=== PATIENT | female | born 1940 | race Caucasian/White ===

== ENCOUNTER 2024-02-21 12:55 | Inpatient (IN) | payer BC, OTHER ==
[2024-02-21] VITALS (10 sets, daily range): BP systolic 98–131; BP diastolic 56–103; TEMP 98.2–98.7; O2SAT 94–98
[~2024-02-21] VITALS: Ht 165.1 cm; Wt 69.9 kg
[2024-02-21] MEDS: AMIODARONE HCL IV 150 MG in IV DEXTROSE 5% 100 ML IV ONE (13:15)
[2024-02-21] MEDS: DIGOXIN 500 MCG/2 ML AMP IV ONE (13:15)
[2024-02-21] MEDS ORDERED: CHOL2000 PO (13:24)
[2024-02-21] MEDS ORDERED: MEMA10TA PO (13:24)
[2024-02-21] MEDS ORDERED: BISA10SU61 RC (13:24)
[2024-02-21] MEDS ORDERED: MECL-159 PO (13:24)
[2024-02-21] MEDS ORDERED: PRO-STAT (13:24)
[2024-02-21] MEDS ORDERED: LEVO150T8 PO (13:24)
[2024-02-21] MEDS ORDERED: ASCO500C18 PO (13:24)
[2024-02-21] MEDS ORDERED: GUAI5SYR PO (13:24)
[2024-02-21] MEDS ORDERED: MULT-213 PO (13:24)
[2024-02-21] MEDS ORDERED: MAGN400O6 PO (13:24)
[2024-02-21] MEDS ORDERED: AMIN30LI2 PO (13:24)
[2024-02-21] MEDS ORDERED: IPRA3AMP22 IH (13:24)
[2024-02-21] MEDS ORDERED: ATOR80TA PO (13:24)
[2024-02-21] MEDS ORDERED: NA P133E RC (13:24)
[2024-02-21 13:27] LABS: BASOPHILS % (AUTO) 0.1 % (0.0-2.0); EOSINOPHILS % (AUTO) 0.1 % (0.0-7.0); HEMATOCRIT 37.4 % (31.2-41.9); HEMOGLOBIN 12.5 g/dL (10.9-14.3); LYMPHOCYTES # (AUTO) 0.8 K/uL (0.8-4.8); LYMPHOCYTES % (AUTO) 4.7 % (20.5-51.5); MEAN CORPUSCULAR HEMOGLOBIN 32.2 uug (24.7-32.8); MEAN CORPUSCULAR HGB CONC 33 g/dL (32.3-35.6); MEAN CORPUSCULAR VOLUME 96.3 fL (75.5-95.3); MONOCYTES % (AUTO) 5.6 % (0.0-11.0); NEUTROPHILS # (AUTO) 15.4 K/uL (1.8-8.9); NEUTROPHILS % (AUTO) 89.5 % (38.5-71.5); PLATELET COUNT (AUTO) 306 K/uL (179-408); RED BLOOD CELL COUNT(AUTO) 3.88 MIL/uL (3.63-4.92); RED CELL DISTRIBUTION WIDTH 15.5 % (12.3-17.7); WHITE BLOOD COUNT (AUTO) 17.3 K/uL (3.8-11.8)
[2024-02-21 13:35] LABS: DIFFERENTIAL COMMENT 1
[2024-02-21 13:42] LABS: CALCIUM 8.9 mg/dL (8.5-10.1); CARBON DIOXIDE 22 mmol/L (21-32); CHLORIDE 108 mmol/L (98-107); CREATININE 3.7 mg/dL (0.6-1.3); GLUCOSE 126 mg/dL (74-106); POTASSIUM 5.2 mmol/L (3.5-5.1); SODIUM SERUM 148 mmol/L (136-145); UREA NITROGEN, BLOOD 79 mg/dL (7-18)
[2024-02-21 13:52] LABS: LACTIC ACID 3.9 mmol/L (0.4-2.0)
[2024-02-21 13:55] LABS: ALANINE AMINOTRANSFERASE 38 U/L (14-59); ALBUMIN 2.2 g/dL (3.4-5.0); ALKALINE PHOSPHATASE 125 U/L (50-136); ASPARTATE AMINOTRANSFERASE 105 U/L (15-37); BILIRUBIN,DIRECT 1.5 mg/dL (0.0-0.2); BILIRUBIN,TOTAL 2.2 mg/dL (0.2-1.0); NT-PRO BNP 49000 pg/mL (0-125); TOTAL PROTEIN, SERUM 7.5 g/dL (6.4-8.2)
[2024-02-21] MEDS: levoFLOXacin 500 MG/D5W 100ML PIGGYBACK IV ONE (14:00)
[2024-02-21] MEDS: IV NORMAL SALINE 1000 ML BAG IV ONE ×2 (14:00→15:45)
[2024-02-21 14:18] LABS: ABG BASE EXCESS -6.9 mmol/L (-2.0-3.0); ABG HCO3 18.7 mmol/L (21.0-28.0); ABG PO2 60.1 mmHg (83.0-108.0); ABG SITE LEFT RADIAL; ABG TOTAL HEMOGLOBIN 13.8 G/dL (12.0-16.0); COHb 0.1 % (0.5-1.5); MetHb 0.3 % (0.0-1.5); O2Hb 86.8 % (94.0-98.0)
[2024-02-21] MEDS ORDERED: REMEDY ESSENTIAL ZINC PASTE 113 GM TP PRN (16:15)
[2024-02-21] MEDS ORDERED: DILTIAZEM HCL IV 125 MG in IV NORMAL SALINE 100 ML IV PRN (16:15)
[2024-02-21] MEDS ORDERED: MAGNESIUM HYDROXIDE 30 ML LIQUID UDC PO PRN ×2 (16:15→19:00)
[2024-02-21] MEDS ORDERED: ONDANSETRON 4 MG/2 ML VIAL IV PRN (16:15)
[2024-02-21] MEDS ORDERED: ACETAMINOPHEN 325 MG TABLET PO PRN (16:15)
[2024-02-21] MEDS ORDERED: DIGOXIN 500 MCG/2 ML AMP ONE (16:55)
[2024-02-21] MEDS ORDERED: PROPOFOL 100 ML ONE (16:56)
[2024-02-21 17:03] LABS: ABG BASE EXCESS -8.8 mmol/L (-2.0-3.0); ABG HCO3 15.4 mmol/L (21.0-28.0); ABG PCO2 28.4 mmHg (32.0-45.0); ABG PH 7.351 (7.350-7.450); ABG PO2 378.6 mmHg (83.0-108.0); ABG SITE LEFT RADIAL; AaDO2 99.8 mmHg; COHb 0.3 % (0.5-1.5); MetHb 0.5 % (0.0-1.5); VT, ABG 450 mL
[2024-02-21] MEDS: levoFLOXacin 750 MG/D5W 150 ML PIGGYBACK IV ONE (17:09)
[2024-02-21] MEDS ORDERED: levoFLOXacin 500 MG/D5W 100 ML ONE (17:31)
[2024-02-21] MEDS: PROPOFOL 100 ML IV PRN (17:33)
[2024-02-21] MEDS: DILTIAZEM HCL IV 125 MG in IV NORMAL SALINE 100 ML IV PRN (18:50)
[2024-02-21] MEDS ORDERED: FLEET ENEMA 133 ML BOTTLE RC PRN (19:00)
[2024-02-21] MEDS ORDERED: BISACODYL 10 MG SUPP.RECT RC PRN (19:00)
[2024-02-21] MEDS: HEPARIN SODIUM,PORCINE 5,000 UNITS/ML VIAL IV PRN (19:26)
[2024-02-21] MEDS: HEPARIN/D5W DRIP 500 ML IV PRN (19:43)
[2024-02-21] MEDS: IV D5 1/2 NS 1000 ML 1,000 ML IV PRN (19:48)
[2024-02-22] VITALS (37 sets, daily range): BP systolic 88–127; BP diastolic 37–75; TEMP 97.8–98.6; O2SAT 91–99
[2024-02-22] MEDS ORDERED: DILTIAZEM HCL 25 MG IV ONE (04:45)
[2024-02-22 05:23] LABS: EOSINOPHILS % (AUTO) 0.1 % (0.0-7.0); HEMATOCRIT 33.9 % (31.2-41.9); HEMOGLOBIN 11.7 g/dL (10.9-14.3); LYMPHOCYTES # (AUTO) 0.6 K/uL (0.8-4.8); LYMPHOCYTES % (AUTO) 3.2 % (20.5-51.5); MEAN CORPUSCULAR HGB CONC 35 g/dL (32.3-35.6); MEAN CORPUSCULAR VOLUME 95.9 fL (75.5-95.3); MONOCYTES # (AUTO) 0.4 K/uL (0.1-1.30); MONOCYTES % (AUTO) 2.6 % (0.0-11.0); NEUTROPHILS # (AUTO) 16.2 K/uL (1.8-8.9); NEUTROPHILS % (AUTO) 94.1 % (38.5-71.5); PLATELET COUNT (AUTO) 225 K/uL (179-408); RED BLOOD CELL COUNT(AUTO) 3.53 MIL/uL (3.63-4.92); WHITE BLOOD COUNT (AUTO) 17.2 K/uL (3.8-11.8)
[2024-02-22 05:38] LABS: CARBON DIOXIDE 22 mmol/L (21-32); CHLORIDE 108 mmol/L (98-107); CREATININE 3.7 mg/dL (0.6-1.3); GLUCOSE 144 mg/dL (74-106); MAGNESIUM 2.2 mg/dL (1.8-2.4); PHOSPHOROUS 3.2 mg/dL (2.5-4.9); POTASSIUM 4.5 mmol/L (3.5-5.1); SODIUM SERUM 144 mmol/L (136-145)
[2024-02-22 05:45] LABS: THYROID STIMULATING HORMONE 7.946 mIU/mL (0.358-3.740)
[2024-02-22 05:57] LABS: UREA NITROGEN, BLOOD 86 mg/dL (7-18)
[2024-02-22 06:26] LABS: DIFFERENTIAL COMMENT 1
[2024-02-22] MEDS ORDERED: Medication Not On Formulary EA (Amino Acids/Protein Hydrolys (Pro-Stat Liquid) 30 ML) PO SCH (09:00)
[2024-02-22] MEDS ORDERED: MEROPENEM 500 MG in IV NORMAL SALINE 50 ML IV SCH (09:00)
[2024-02-22] MEDS ORDERED: MEMANTINE HCL 10 MG TABLET PO SCH (09:00)
[2024-02-22] MEDS: PANTOPRAZOLE SODIUM 40 MG VIAL IV SCH (09:39)
[2024-02-22] MEDS: CHOLECALCIFEROL 1,000 UNIT TABLET PO SCH (09:40)
[2024-02-22] MEDS: MEMANTINE HCL 5 MG TABLET PO SCH (09:40)
[2024-02-22] MEDS: MULTIVITAMINS,THERAPEUTIC TABLET PO SCH (09:41)
[2024-02-22] MEDS: ASCORBIC ACID 500 MG TABLET PO SCH (09:41)
[2024-02-22] MEDS: ATORVASTATIN 40 MG TABLET PO SCH (09:41)
[2024-02-22] MEDS: PROTEIN SUPPLEMENT (PROSTAT) 30 ML LIQUID PO SCH (09:45)
[2024-02-22] MEDS: HEPARIN SODIUM,PORCINE 5,000 UNITS/ML VIAL IV ONE (11:49)
[2024-02-22] MEDS: MEROPENEM 500 MG in IV NORMAL SALINE 50 ML IV SCH (11:59)
[2024-02-22] MEDS ORDERED: LEVOFLOXACIN 250 MG IV SCH (21:00)
[2024-02-22] MEDS ORDERED: [UNRECOGNIZED DRUG - OTHER] IV SCH (21:00)
[2024-02-23] VITALS (60 sets, daily range): BP systolic 89–131; BP diastolic 42–76; TEMP 96.6–98.2; O2SAT 92–100
[2024-02-23 05:22] LABS: BASOPHILS % (AUTO) 0.1 % (0.0-2.0); EOSINOPHILS % (AUTO) 0.1 % (0.0-7.0); HEMATOCRIT 32.8 % (31.2-41.9); HEMOGLOBIN 11.2 g/dL (10.9-14.3); LYMPHOCYTES # (AUTO) 1.1 K/uL (0.8-4.8); LYMPHOCYTES % (AUTO) 4.5 % (20.5-51.5); MEAN CORPUSCULAR HEMOGLOBIN 32.6 uug (24.7-32.8); MEAN CORPUSCULAR HGB CONC 34 g/dL (32.3-35.6); MEAN CORPUSCULAR VOLUME 95.7 fL (75.5-95.3); MONOCYTES # (AUTO) 0.7 K/uL (0.1-1.30); MONOCYTES % (AUTO) 3.1 % (0.0-11.0); NEUTROPHILS # (AUTO) 21.9 K/uL (1.8-8.9); NEUTROPHILS % (AUTO) 92.2 % (38.5-71.5); PLATELET COUNT (AUTO) 227 K/uL (179-408); RED BLOOD CELL COUNT(AUTO) 3.43 MIL/uL (3.63-4.92); RED CELL DISTRIBUTION WIDTH 14.6 % (12.3-17.7); WHITE BLOOD COUNT (AUTO) 23.8 K/uL (3.8-11.8)
[2024-02-23 05:57] LABS: ABG BASE EXCESS -5.7 mmol/L (-2.0-3.0); ABG HCO3 18.5 mmol/L (21.0-28.0); ABG PCO2 31.8 mmHg (32.0-45.0); ABG PH 7.382 (7.350-7.450); ABG PO2 108.4 mmHg (83.0-108.0); ABG SITE LEFT FEMORAL; ABG TOTAL HEMOGLOBIN 11.7 G/dL (12.0-16.0); AaDO2 97.9 mmHg; COHb 0.3 % (0.5-1.5); MetHb 0.4 % (0.0-1.5); O2Hb 97.1 % (94.0-98.0); VT, ABG 450 mL
[2024-02-23 06:11] LABS: DIFFERENTIAL COMMENT 1
[2024-02-23 07:22] LABS: ALANINE AMINOTRANSFERASE 74 U/L (14-59); ALBUMIN 1.5 g/dL (3.4-5.0); ALKALINE PHOSPHATASE 154 U/L (50-136); ASPARTATE AMINOTRANSFERASE 195 U/L (15-37); BILIRUBIN,DIRECT 2.2 mg/dL (0.0-0.2); BILIRUBIN,TOTAL 2.9 mg/dL (0.2-1.0); CALCIUM 7.9 mg/dL (8.5-10.1); CARBON DIOXIDE 19 mmol/L (21-32); CHLORIDE 108 mmol/L (98-107); CREATINE KINASE, TOTAL 683 U/L (26-192); CREATININE 3.8 mg/dL (0.6-1.3); GLUCOSE 141 mg/dL (74-106); MAGNESIUM 2.4 mg/dL (1.8-2.4); NT-PRO BNP 22538 pg/mL (0-125); PHOSPHOROUS 3.2 mg/dL (2.5-4.9); POTASSIUM 4.5 mmol/L (3.5-5.1); SODIUM SERUM 144 mmol/L (136-145)
[2024-02-23 07:35] LABS: UREA NITROGEN, BLOOD 91 mg/dL (7-18)
[2024-02-23] MEDS: LEVOTHYROXINE SODIUM 150 MCG TABLET NG SCH (10:33)
[2024-02-23 10:40] LABS: *BILIRUBIN,URIN NEGATIVE (NEGATIVE); *BLOOD, URINE 2+ (NEGATIVE); *CLARITY,URINE CLEAR (CLEAR); *COLOR,URINE YELLOW (YELLOW); *KETONES,URINE NEGATIVE (NEGATIVE); *PROTEIN,URINE 2+ (NEGATIVE); LEUKOCYTE ESTERASE ,URINE 1+ (NEGATIVE); NITRITE, URINE NEGATIVE (NEGATIVE); UGLUCOSE NEGATIVE (NEGATIVE)
[2024-02-23 10:48] LABS: RBC,URINE 20-50 /HPF (0-3)
[2024-02-23 10:49] LABS: BACTERIA,URINE FEW /HPF (NONE SEEN); SQUAMOUS EPITHELIAL CELL,UR FEW /HPF (NONE SEEN)
[2024-02-23 12:26] LABS: *CREATININE,URINE 64.8 mg/dL (30-125)
[2024-02-23] MEDS ORDERED: LEVOFLOXACIN 250 MG IV SCH ×2 (14:00→21:00)
[2024-02-23] MEDS ORDERED: [UNRECOGNIZED DRUG - OTHER] IV SCH ×2 (14:00→21:00)
[2024-02-23] MEDS: DOXYCYCLINE HYCLATE IV 100 MG in IV DEXTROSE 5% 100 ML IV SCH (16:55)
[2024-02-23] MEDS: HEPARIN SODIUM,PORCINE 5,000 UNITS/ML VIAL SQ SCH (21:03)
[2024-02-24] VITALS (45 sets, daily range): BP systolic 87–140; BP diastolic 38–69; TEMP 97.3–98.2; O2SAT 97–100
[2024-02-24] MEDS: DOXYCYCLINE HYCLATE IV 100 MG in IV DEXTROSE 5% 100 ML IV SCH ×2 (04:33→09:22)
[2024-02-24 05:07] LABS: PTH, INTACT 160 pg/mL (15-65)
[2024-02-24 05:19] LABS: BASOPHILS % (AUTO) 0.1 % (0.0-2.0); HEMATOCRIT 34.6 % (31.2-41.9); RED BLOOD CELL COUNT(AUTO) 3.58 MIL/uL (3.63-4.92)
[2024-02-24 05:23] LABS: EOSINOPHILS % (AUTO) 0.1 % (0.0-7.0); HEMOGLOBIN 11.4 g/dL (10.9-14.3); LYMPHOCYTES # (AUTO) 1.2 K/uL (0.8-4.8); LYMPHOCYTES % (AUTO) 3.7 % (20.5-51.5); MEAN CORPUSCULAR HEMOGLOBIN 31.9 uug (24.7-32.8); MEAN CORPUSCULAR HGB CONC 33 g/dL (32.3-35.6); MEAN CORPUSCULAR VOLUME 96.6 fL (75.5-95.3); MONOCYTES # (AUTO) 0.7 K/uL (0.1-1.30); MONOCYTES % (AUTO) 2.2 % (0.0-11.0); NEUTROPHILS # (AUTO) 29.7 K/uL (1.8-8.9); NEUTROPHILS % (AUTO) 93.9 % (38.5-71.5); PLATELET COUNT (AUTO) 260 K/uL (179-408); RED CELL DISTRIBUTION WIDTH 15.6 % (12.3-17.7)
[2024-02-24 05:31] LABS: DIFFERENTIAL COMMENT 1; WHITE BLOOD COUNT (AUTO) 31.6 K/uL (3.8-11.8)
[2024-02-24 05:34] LABS: CALCIUM 7.7 mg/dL (8.5-10.1); CARBON DIOXIDE 21 mmol/L (21-32); CHLORIDE 105 mmol/L (98-107); CREATININE 3.5 mg/dL (0.6-1.3); GLUCOSE 149 mg/dL (74-106); MAGNESIUM 2.3 mg/dL (1.8-2.4); PHOSPHOROUS 4.2 mg/dL (2.5-4.9); POTASSIUM 4.2 mmol/L (3.5-5.1); SODIUM SERUM 138 mmol/L (136-145)
[2024-02-24 05:48] LABS: UREA NITROGEN, BLOOD 87 mg/dL (7-18)
[2024-02-24 07:44] LABS: ABG BASE EXCESS -5.6 mmol/L (-2.0-3.0); ABG HCO3 18.7 mmol/L (21.0-28.0); ABG PCO2 32.5 mmHg (32.0-45.0); ABG PH 7.377 (7.350-7.450); ABG PO2 129.3 mmHg (83.0-108.0); ABG TOTAL HEMOGLOBIN 11.8 G/dL (12.0-16.0); AaDO2 98.6 mmHg; COHb 0.3 % (0.5-1.5); CPAP,BG 8 cmH20; MetHb 0.4 % (0.0-1.5); O2Hb 97.9 % (94.0-98.0)
[2024-02-24] MEDS: FUROSEMIDE 20 MG/2 ML VIAL IV SCH (09:22)
[2024-02-24 15:58] LABS: BAND % (MANUAL) 3 % (0-10); LYMPHOCYTES % (MANUAL) 2 % (20-40); NEUTROPHILS % (MANUAL) 88 % (42-75)
[2024-02-24 15:59] LABS: ANISOCYTOSIS 1+; METAMYELOCYTES % 6 % (0-1); MYELOCYTES % 1 % (0-0); PLATELET ESTIMATE ADEQUATE
[2024-02-24] MEDS: FUROSEMIDE 40 MG/4 ML VIAL IV ONE (16:24)
[2024-02-25] VITALS (43 sets, daily range): BP systolic 73–148; BP diastolic 37–106; TEMP 96.7–98.4; O2SAT 92–100
[2024-02-25 05:46] LABS: ABG BASE EXCESS -5.9 mmol/L (-2.0-3.0); ABG HCO3 18.4 mmol/L (21.0-28.0); ABG PCO2 32.4 mmHg (32.0-45.0); ABG PH 7.373 (7.350-7.450); ABG PO2 102.7 mmHg (83.0-108.0); ABG SITE LEFT RADIAL; ABG TOTAL HEMOGLOBIN 11.5 G/dL (12.0-16.0); AaDO2 97.6 mmHg; COHb 0.1 % (0.5-1.5); CPAP,BG 8 cmH20; MetHb 0.3 % (0.0-1.5); O2Hb 97.5 % (94.0-98.0)
[2024-02-25] MEDS: LEVALBUTEROL HCL NEB 0.63 MG/3 ML NEBU NEB SCH (13:03)
[2024-02-25 14:55] LABS: BASOPHILS % (AUTO) 0.1 % (0.0-2.0); EOSINOPHILS # (AUTO) 0.1 K/uL (0.0-0.7); EOSINOPHILS % (AUTO) 0.2 % (0.0-7.0); HEMATOCRIT 32.2 % (31.2-41.9); HEMOGLOBIN 10.7 g/dL (10.9-14.3); LYMPHOCYTES # (AUTO) 1.4 K/uL (0.8-4.8); LYMPHOCYTES % (AUTO) 2.9 % (20.5-51.5); MEAN CORPUSCULAR HEMOGLOBIN 31.6 uug (24.7-32.8); MEAN CORPUSCULAR HGB CONC 33 g/dL (32.3-35.6); MEAN CORPUSCULAR VOLUME 95.1 fL (75.5-95.3); MONOCYTES # (AUTO) 0.8 K/uL (0.1-1.30); MONOCYTES % (AUTO) 1.7 % (0.0-11.0); NEUTROPHILS # (AUTO) 44.5 K/uL (1.8-8.9); NEUTROPHILS % (AUTO) 95.1 % (38.5-71.5); PLATELET COUNT (AUTO) 288 K/uL (179-408); RED BLOOD CELL COUNT(AUTO) 3.38 MIL/uL (3.63-4.92); RED CELL DISTRIBUTION WIDTH 15.4 % (12.3-17.7)
[2024-02-25 15:04] LABS: DIFFERENTIAL COMMENT 1; WHITE BLOOD COUNT (AUTO) 46.8 K/uL (3.8-11.8)
[2024-02-25 15:19] LABS: ALANINE AMINOTRANSFERASE 50 U/L (14-59); ALKALINE PHOSPHATASE 226 U/L (50-136); ASPARTATE AMINOTRANSFERASE 138 U/L (15-37); BILIRUBIN,TOTAL 1.8 mg/dL (0.2-1.0); CALCIUM 7.6 mg/dL (8.5-10.1); CARBON DIOXIDE 21 mmol/L (21-32); CHLORIDE 105 mmol/L (98-107); CREATININE 3.8 mg/dL (0.6-1.3); GLUCOSE 95 mg/dL (74-106); MAGNESIUM 2.2 mg/dL (1.8-2.4); PHOSPHOROUS 5.3 mg/dL (2.5-4.9); POTASSIUM 4.6 mmol/L (3.5-5.1); SODIUM SERUM 141 mmol/L (136-145); TOTAL PROTEIN, SERUM 6.2 g/dL (6.4-8.2)
[2024-02-25 15:27] LABS: ALBUMIN 1.4 g/dL (3.4-5.0); UREA NITROGEN, BLOOD 99 mg/dL (7-18)
[2024-02-25] MEDS: IV D5W 1000ML 1,000 ML IV PRN (16:25)
[2024-02-25] MEDS: JEVITY 1.2 1000 ML LIQUID GT PRN (16:26)
[2024-02-25] MEDS: NOREPINEPHRINE 8MG/NS 250ML 250 ML IV PRN (19:27)
[2024-02-25 20:40] LABS: BAND % (MANUAL) 1 % (0-10); LYMPHOCYTES % (MANUAL) 1 % (20-40); METAMYELOCYTES % 3 % (0-1); MONOCYTES % (MANUAL) 1 % (2-10); MYELOCYTES % 1 % (0-0); NEUTROPHILS % (MANUAL) 93 % (42-75)
[2024-02-25 20:41] LABS: ANISOCYTOSIS 1+; PLATELET ESTIMATE ADEQUATE
[2024-02-25] MEDS: METRONIDAZOLE 500 MG TABLET PO SCH (22:11)
[2024-02-26] VITALS (53 sets, daily range): BP systolic 79–164; BP diastolic 37–92; TEMP 97.6–98.7; O2SAT 90–98
[2024-02-26 11:10] LABS: DIFFERENTIAL COMMENT 0; EOSINOPHILS # (AUTO) 0.1 K/uL (0.0-0.7); EOSINOPHILS % (AUTO) 0.1 % (0.0-7.0); HEMATOCRIT 30.8 % (31.2-41.9); HEMOGLOBIN 10.1 g/dL (10.9-14.3); LYMPHOCYTES % (AUTO) 1.8 % (20.5-51.5); MEAN CORPUSCULAR HEMOGLOBIN 31.5 uug (24.7-32.8); MEAN CORPUSCULAR HGB CONC 33 g/dL (32.3-35.6); MEAN CORPUSCULAR VOLUME 95.9 fL (75.5-95.3); MONOCYTES # (AUTO) 0.4 K/uL (0.1-1.30); MONOCYTES % (AUTO) 0.7 % (0.0-11.0); NEUTROPHILS # (AUTO) 55.8 K/uL (1.8-8.9); NEUTROPHILS % (AUTO) 97.4 % (38.5-71.5); PLATELET COUNT (AUTO) 295 K/uL (179-408); RED BLOOD CELL COUNT(AUTO) 3.21 MIL/uL (3.63-4.92); RED CELL DISTRIBUTION WIDTH 15.6 % (12.3-17.7)
[2024-02-26 11:13] LABS: WHITE BLOOD COUNT (AUTO) 57.4 K/uL (3.8-11.8)
[2024-02-26 11:28] LABS: ALANINE AMINOTRANSFERASE 41 U/L (14-59); ALKALINE PHOSPHATASE 253 U/L (50-136); ASPARTATE AMINOTRANSFERASE 133 U/L (15-37); BILIRUBIN,DIRECT 1.3 mg/dL (0.0-0.2); BILIRUBIN,TOTAL 1.6 mg/dL (0.2-1.0); CARBON DIOXIDE 18 mmol/L (21-32); CHLORIDE 101 mmol/L (98-107); CREATININE 4.2 mg/dL (0.6-1.3); GLUCOSE 109 mg/dL (74-106); MAGNESIUM 2.3 mg/dL (1.8-2.4); PHOSPHOROUS 6.8 mg/dL (2.5-4.9); SODIUM SERUM 135 mmol/L (136-145); TOTAL PROTEIN, SERUM 6.1 g/dL (6.4-8.2)
[2024-02-26 11:32] LABS: UREA NITROGEN, BLOOD 101 mg/dL (7-18)
[2024-02-26 11:33] LABS: ALBUMIN 1.2 g/dL (3.4-5.0)
[2024-02-26 12:00] LABS: BAND % (MANUAL) 2 % (0-10); LYMPHOCYTES % (MANUAL) 1 % (20-40); MONOCYTES % (MANUAL) 4 % (2-10); NEUTROPHILS % (MANUAL) 92 % (42-75)
[2024-02-26 12:01] LABS: ANISOCYTOSIS 1+; METAMYELOCYTES % 1 % (0-1); PLATELET ESTIMATE ADEQUATE
[2024-02-26] MEDS: ALBUMIN HUMAN 25% 100 ML IV SCH (13:39)
[2024-02-26] MEDS ORDERED: PHENYLEPHRINE IV 100 MG in IV NORMAL SALINE 240 ML IV PRN (14:30)
[2024-02-26] MEDS: IV NS 1000 ML 1,000 ML IV SCH (15:33)
[2024-02-27] VITALS (81 sets, daily range): BP systolic 67–122; BP diastolic 28–73; TEMP 95–97.8; O2SAT 77–100
[2024-02-27 05:19] LABS: BASOPHILS # (AUTO) 0.1 K/UL (0.0-0.2); BASOPHILS % (AUTO) 0.2 % (0.0-2.0); EOSINOPHILS # (AUTO) 0.1 K/uL (0.0-0.7); EOSINOPHILS % (AUTO) 0.1 % (0.0-7.0); HEMATOCRIT 25.1 % (31.2-41.9); HEMOGLOBIN 8.3 g/dL (10.9-14.3); LYMPHOCYTES # (AUTO) 0.7 K/uL (0.8-4.8); LYMPHOCYTES % (AUTO) 1.4 % (20.5-51.5); MEAN CORPUSCULAR HEMOGLOBIN 32.3 uug (24.7-32.8); MEAN CORPUSCULAR HGB CONC 33 g/dL (32.3-35.6); MEAN CORPUSCULAR VOLUME 97.8 fL (75.5-95.3); MONOCYTES # (AUTO) 0.2 K/uL (0.1-1.30); MONOCYTES % (AUTO) 0.4 % (0.0-11.0); NEUTROPHILS # (AUTO) 50.6 K/uL (1.8-8.9); NEUTROPHILS % (AUTO) 97.9 % (38.5-71.5); PLATELET COUNT (AUTO) 221 K/uL (179-408); RED BLOOD CELL COUNT(AUTO) 2.56 MIL/uL (3.63-4.92); RED CELL DISTRIBUTION WIDTH 16.3 % (12.3-17.7)
[2024-02-27 05:55] LABS: *RHEUMATOID FACTOR SCREEN NEGATIVE (NEGATIVE)
[2024-02-27 05:57] LABS: WHITE BLOOD COUNT (AUTO) 51.7 K/uL (3.8-11.8)
[2024-02-27 06:03] LABS: ALANINE AMINOTRANSFERASE 32 U/L (14-59); ALBUMIN 2.2 g/dL (3.4-5.0); ALKALINE PHOSPHATASE 216 U/L (50-136); ASPARTATE AMINOTRANSFERASE 131 U/L (15-37); BILIRUBIN,DIRECT 1.3 mg/dL (0.0-0.2); BILIRUBIN,TOTAL 1.8 mg/dL (0.2-1.0); CALCIUM 6.4 mg/dL (8.5-10.1); CARBON DIOXIDE 16 mmol/L (21-32); CHLORIDE 104 mmol/L (98-107); CREATININE 4.6 mg/dL (0.6-1.3); GLUCOSE 108 mg/dL (74-106); MAGNESIUM 2.3 mg/dL (1.8-2.4); PHOSPHOROUS 7.3 mg/dL (2.5-4.9); POTASSIUM 5.1 mmol/L (3.5-5.1); SODIUM SERUM 138 mmol/L (136-145); TOTAL PROTEIN, SERUM 5.6 g/dL (6.4-8.2)
[2024-02-27 06:22] LABS: UREA NITROGEN, BLOOD 111 mg/dL (7-18)
[2024-02-27] MEDS: PANTOPRAZOLE ORAL SUSPENSION 40 MG SUSPDR.PKT GT SCH (06:38)
[2024-02-27 06:44] LABS: IRON, SERUM 665 ug/dL (50-175)
[2024-02-27 06:55] LABS: BAND % (MANUAL) 9 % (0-10); LYMPHOCYTES % (MANUAL) 2 % (20-40); MONOCYTES % (MANUAL) 2 % (2-10); MYELOCYTES % 1 % (0-0); NEUTROPHILS % (MANUAL) 86 % (42-75)
[2024-02-27 07:09] LABS: A/G RATIO 0.4 (0.7-1.7); ALBUMIN 1.6 g/dL (2.9-4.4); ALPHA-1-GLOBULIN 0.5 g/dL (0.0-0.4); ALPHA-2-GLOBULIN 1.2 g/dL (0.4-1.0); GLOBULIN, TOTAL 3.7 g/dL (2.2-3.9); M-SPIKE Not Observed g/dL (Not Observed); PROTEIN, TOTAL 5.3 g/dL (6.0-8.5)
[2024-02-27] MEDS: PHENYLEPHRINE IV 100 MG in IV NORMAL SALINE 240 ML IV PRN (08:30)
[2024-02-27 09:01] LABS: C-REACTIVE PROTEIN 17.18 mg/dL (0.00-0.30)
[2024-02-27 11:27] LABS: FERRITIN 3512 ng/mL (8-252)
[2024-02-27] MEDS ORDERED: VANCOMYCIN IV 200 ML ONE (19:33)
[2024-02-27] MEDS: VANCOMYCIN IV 1,000 MG in IV NORMAL SALINE 250 ML IV ONE (19:47)
[2024-02-28] VITALS (40 sets, daily range): BP systolic 73–118; BP diastolic 26–97; TEMP 95–96; O2SAT 78–91
[2024-02-28 05:26] LABS: BASOPHILS # (AUTO) 0.5 K/UL (0.0-0.2); BASOPHILS % (AUTO) 0.6 % (0.0-2.0); EOSINOPHILS # (AUTO) 0.1 K/uL (0.0-0.7); EOSINOPHILS % (AUTO) 0.1 % (0.0-7.0); HEMATOCRIT 27.9 % (31.2-41.9); LYMPHOCYTES # (AUTO) 0.8 K/uL (0.8-4.8); LYMPHOCYTES % (AUTO) 0.9 % (20.5-51.5); MEAN CORPUSCULAR HEMOGLOBIN 31.8 uug (24.7-32.8); MEAN CORPUSCULAR HGB CONC 32 g/dL (32.3-35.6); MEAN CORPUSCULAR VOLUME 98.2 fL (75.5-95.3); MONOCYTES # (AUTO) 0.2 K/uL (0.1-1.30); MONOCYTES % (AUTO) 0.3 % (0.0-11.0); NEUTROPHILS # (AUTO) 87.5 K/uL (1.8-8.9); NEUTROPHILS % (AUTO) 98.1 % (38.5-71.5); PLATELET COUNT (AUTO) 227 K/uL (179-408); RED BLOOD CELL COUNT(AUTO) 2.84 MIL/uL (3.63-4.92); RED CELL DISTRIBUTION WIDTH 16.3 % (12.3-17.7)
[2024-02-28 05:58] LABS: ALANINE AMINOTRANSFERASE 28 U/L (14-59); ALBUMIN 1.8 g/dL (3.4-5.0); ALKALINE PHOSPHATASE 795 U/L (50-136); ASPARTATE AMINOTRANSFERASE 182 U/L (15-37); BILIRUBIN,DIRECT 0.7 mg/dL (0.0-0.2); BILIRUBIN,TOTAL 1.2 mg/dL (0.2-1.0); CARBON DIOXIDE 18 mmol/L (21-32); CHLORIDE 101 mmol/L (98-107); GLUCOSE 124 mg/dL (74-106); MAGNESIUM 2.2 mg/dL (1.8-2.4); POTASSIUM 5.3 mmol/L (3.5-5.1); SODIUM SERUM 136 mmol/L (136-145); TOTAL PROTEIN, SERUM 5.5 g/dL (6.4-8.2)
[2024-02-28 06:00] LABS: DIFFERENTIAL COMMENT 1; WHITE BLOOD COUNT (AUTO) 89.2 K/uL (3.8-11.8)
[2024-02-28 06:07] LABS: CALCIUM 5.9 mg/dL (8.5-10.1); UREA NITROGEN, BLOOD 81 mg/dL (7-18)
[2024-02-28 06:08] LABS: PHOSPHOROUS 8.2 mg/dL (2.5-4.9)
[2024-02-28 06:13] LABS: ABG BASE EXCESS -17.6 mmol/L (-2.0-3.0); ABG HCO3 12.1 mmol/L (21.0-28.0); ABG PCO2 44.9 mmHg (32.0-45.0); ABG PH 7.048 (7.350-7.450); ABG PO2 74.9 mmHg (83.0-108.0); ABG SITE LEFT RADIAL; ABG TOTAL HEMOGLOBIN 10.3 G/dL (12.0-16.0); AaDO2 87.8 mmHg; COHb 0.2 % (0.5-1.5); MetHb 0.4 % (0.0-1.5); O2Hb 87.2 % (94.0-98.0); VT, ABG 450 mL
[2024-02-28 06:54] LABS: BAND % (MANUAL) 10 % (0-10); LYMPHOCYTES % (MANUAL) 8 % (20-40); MONOCYTES % (MANUAL) 6 % (2-10); NEUTROPHILS % (MANUAL) 76 % (42-75)
[2024-02-28 09:16] LABS: ALBUMIN 1.7 g/dL (3.4-5.0); BILIRUBIN,DIRECT 0.6 mg/dL (0.0-0.2); BILIRUBIN,TOTAL 1.2 mg/dL (0.2-1.0); TOTAL PROTEIN, SERUM 5.2 g/dL (6.4-8.2)
[2024-02-28 10:06] LABS: FREE KAPPA LT CHAINS SERUM 368.3 mg/L (3.3-19.4); FREE LAMBDA LT CHAIN SERUM 228.2 mg/L (5.7-26.3); KAPPA/LAMBDA RATIO SERUM 1.61 (0.26-1.65)
[2024-02-29 04:08] LABS: HEPATITIS B SURFACE AB, QUAL Non Reactive (.); HEPATITIS B SURFACE AG Negative (Negative)
== END 2024-02-28 12:36 | DRG 870 ==
LOC: ER 12:55 → CCU 18:16
PROVIDERS: ADMIT Student in an Organized Health Care Education/Training Program; ATTEND Student in an Organized Health Care Education/Training Program
PROC: 5A1955Z Respiratory Ventilation, Greater than 96 Consecutive Hours (ICD-10-PCS; principal; 2024-02-21)
PROC: 0BH17EZ Insertion of Endotracheal Airway into Trachea, Via Natural or Artificial Opening (ICD-10-PCS; 2024-02-21)
PROC: 02HV33Z Insertion of Infusion Device into Superior Vena Cava, Percutaneous Approach (ICD-10-PCS; 2024-02-26)
PROC: 06HY33Z Insertion of Infusion Device into Lower Vein, Percutaneous Approach (ICD-10-PCS; 2024-02-27)
PROC: 5A1D70Z Performance of Urinary Filtration, Intermittent, Less than 6 Hours Per Day (ICD-10-PCS; 2024-02-27)
PROC: 5A12012 Performance of Cardiac Output, Single, Manual (ICD-10-PCS; 2024-02-28)
DX: A41.02 Sepsis due to Methicillin resistant Staphylococcus aureus (principal); J96.01 Acute respiratory failure with hypoxia; I21.A1 Myocardial infarction type 2; J15.212 Pneumonia due to Methicillin resistant Staphylococcus aureus; R65.21 Severe sepsis with septic shock; N17.0 Acute kidney failure with tubular necrosis; E43 Unspecified severe protein-calorie malnutrition; J44.0 Chronic obstructive pulmonary disease with (acute) lower respiratory infection; F03.94 Unspecified dementia, unspecified severity, with anxiety; E87.0 Hyperosmolality and hypernatremia; E87.1 Hypo-osmolality and hyponatremia; E87.20 Acidosis, unspecified; M48.56XA Collapsed vertebra, not elsewhere classified, lumbar region, initial encounter for fracture; J81.1 Chronic pulmonary edema; D68.9 Coagulation defect, unspecified; D64.9 Anemia, unspecified; I48.91 Unspecified atrial fibrillation; K62.89 Other specified diseases of anus and rectum; I08.0 Rheumatic disorders of both mitral and aortic valves; E03.9 Hypothyroidism, unspecified; R34 Anuria and oliguria; R74.01 Elevation of levels of liver transaminase levels; I12.9 Hypertensive chronic kidney disease with stage 1 through stage 4 chronic kidney disease, or unspecified chronic kidney disease; I16.0 Hypertensive urgency; M89.8X9 Other specified disorders of bone, unspecified site; I25.10 Atherosclerotic heart disease of native coronary artery without angina pectoris; E87.5 Hyperkalemia; K82.8 Other specified diseases of gallbladder; N18.9 Chronic kidney disease, unspecified; N30.90 Cystitis, unspecified without hematuria; Z88.3 Allergy status to other anti-infective agents; E78.5 Hyperlipidemia, unspecified; D72.823 Leukemoid reaction; Z88.0 Allergy status to penicillin; Z88.2 Allergy status to sulfonamides; Z88.8 Allergy status to other drugs, medicaments and biological substances; Z79.899 Other long term (current) drug therapy
CPT/HCPCS: 36415; 36600; 70030-TC; 70450; 71045; 74018; 76775; 78445; 82746; 82803; 83550; 83605; 83735; 83970; 84100; 84155; 84165; 84300; 84443; 84484; 85025; 85610; 85730; 86038; 86140; 86430; 86706; 87040; 87340; 92950; 93307; 94002; 94003; 94640; 94664; 94760; 99082-TC; A4606; A4663; A9537; G0378; J0282; J1160; J1644; J1940; J1956; J2185; J2470; J3370; J3490; J7040; J7042; J7070; J7614; P9047